=== PATIENT | female | born 1985 | race Caucasian/White ===

== ENCOUNTER 2018-05-10 12:22 | Inpatient (IN) | payer OTHER ==
--- NOTE | 2018-05-10 13:11 | HP ---
General Information - Reason for Visit at 40 w 4 d for induction - General Information Maternal Age: 33 Grav: 4 Para: 3 SAB: 0 IEA: 0 Estimated Due Date: 05/06/18 Determined By: Early Ultrasound Gestational Age in Weeks/Days: 40 w 4d Maternal Blood Type and Rh: O Positive - Results this Serology/RPR Result: Non-Reactive Rubella Result: Immune HBsAg Result: Negative HIV Result: Negative GBS Culture Result: Negative Past Medical History Delivery History: Hx Uncomplicated Vaginal Delivery Past Medical History Comment: asthma eczema migraine Past Surgical History Comment: tonsillectomy 1992 Umbilical hernia repair x2 2007, 2014 laparoscopy with left ovarian cystectomy 2017 Pertinent Family History: Non-Contributory - Antepartal Records Antepartal Records: Reviewed, Complicated by: - marijuana use, cigarette smoker Review of Systems Constitutional: Comfortable CV Complaint: No Respiratory: Shortness of Breath: No Gastrointestinal: No Nausea/Vomiting, Normal Bowel Movement Genitourinary: Spotting Musculoskeletal: Contractions - mild, irregular since approx 2 am Neurological: No Headache Movement: Normal Exam Allergies/Adverse Reactions: Allergies bee venom protein (honey bee) Allergy (Verified 05/04/18 13:23) Difficulty Breathing AND SWELLING tramadol Allergy (Verified 05/04/18 13:23) Hives - Measurements Height: 5 ft 1 in Weight: 189 lb Body Mass Index (BMI): 35.6 Pre- Weight: 156 lb - Exam Breast: - - soft, no masses Extremities: No Edema - eczema present Heart: Normal Rhythm/Heart Sounds HEENT: No Significant Findings Lungs: Clear Bilaterally Reflexes: DTR 2+ Thyroid: No Thyromegaly - Ultrasound/Biophysical Profile Ultrasound Status: Not Done Targeted Exam Findings Cervical Exam: 4cm Effacement: 80% Station: -1 Presenting Part: Vertex Membrane Status: AROM - at 1254 Amniotic Fluid Evaluation: Clear EFM Findings - External Monitor Findings Baseline Heart Rate: 140 External Monitor Findings: Accelerations Present, No Pattern of Variable or Late Decelerations, Variability Moderate, Baseline Stable External Monitor Findings Comment: category 1 Contractions: Irregular, Mild Assessment/Plan - Assessment at 40 w 4 day for elective induction - Obstetrical Risk Factors Obstetrical Risk Factors: Substance Abuse, Tobacco Use - Plan Plan: Admit - Anticipate Vaginal Delivery Plan Comment: will augment with pitocin if amniotomy not effective - Date/Time of Admission Date of Admission: 05/10/18 Time of Admission: 13:00
--- NOTE | 2018-05-10 19:25 | PN ---
Progress Note - Progress Note Date of Service: 05/10/18 Note: contractions every 3-5 minutes, uncomfortable Cervix: 5cm, 100%, vtx -1 Making progress, but will consider pitocin augmentation prn
[2018-05-10] MEDS ORDERED: Oxytocin in LR* 20 UNITS/1,000 ML BAG IVPB SCH (22:00)
[2018-05-10] MEDS ORDERED: Witch Hazel PAD* JAR TOPICAL PRN (22:38)
[2018-05-10] MEDS ORDERED: Acetaminophen TAB* 325 MG PO PRN (22:38)
[2018-05-10] MEDS ORDERED: Glycerin ADULT SUPP PR PRN (22:38)
[2018-05-10] MEDS ORDERED: Dibucaine 1% 28.35 GM TUBE PR PRN (22:38)
[2018-05-10] MEDS ORDERED: OXYTOCIN* 10 UNITS/ML 1 ML VIAL IM ONE (22:39)
--- NOTE | 2018-05-10 22:54 | PROCNOTE ---
[facility] OB: Delivery Note - Delivery A Date of : 05/10/18 Time of : 22:17 Mallard Sex: Male Score 1 Minute: 9 Score 5 Minutes: 9 Gestational Age in Weeks and Days at Delivery: 40 Weeks and 4 Days Delivery Method: Spontaneous Vaginal Labor: Induced - by amniotomy Did Patient attempt ?: N/A, No Previous Amniotic Fluid: Clear Estimated Blood Loss: 150 Anesthesia/Analgesia: None Delivered By: Tram Loya - Nursery Level of Nursery: Regular/Bedside - Perineum Perineal Injury: Perineal Laceration Perineal Injury Comment: 1 stitch repair with 4-0 vicryl under 1% lidocaine local Perineal Repair: By Delivering Practioner - Additional Delivery Notes Additional Delivery Notes: SVB L[facility] over perineal abrasion, hand and arm presented with anterior shoulder, cord around chest and body. Infant pink, vigorous cry. Placenta Zane. Fundus firm with massage, pitocin 10 units IM given. EBL 150 cc. Mother and baby in good condition
[2018-05-10] MEDS: Ibuprofen TAB* 600 MG PO PRN (23:47)
[2018-05-11] MEDS: Ibuprofen TAB* 600 MG PO PRN ×3 (08:06→20:45)
[2018-05-11] MEDS: Docusate CAP* 100 MG PO SCH ×3 (08:07→20:45)
[2018-05-11 08:19] LABS: Hematocrit 39 % (35-47); Hemoglobin 13.2 g/dl (12.0-16.0); Mean Corpuscular HGB Conc 34 g/dl (31-36); Mean Corpuscular Hemoglobin 31 pg (27-31); Mean Corpuscular Volume 92 fL (80-97); Platelet Count 193 10^3/ul (150-450); Red Blood Count 4.26 10^6/ul (4.00-5.40); Red Cell Distribution Width 14 % (10.5-15); White Blood Count 12.4 10^3/ul (3.5-10.8)
[2018-05-11] MEDS ORDERED: Ferrous Gluconate TAB* 324 MG TAB PO SCH (09:00)
[2018-05-12] MEDS: Ibuprofen TAB* 600 MG PO PRN (08:09)
[2018-05-12] MEDS: Docusate CAP* 100 MG PO SCH (08:09)
[2018-05-12 08:30] VITALS: BP 128/80
== END 2018-05-12 08:53 | disposition home or self-care (01) | DRG 560 ==
LOC: MCHOBOUT 12:22 → MCHOB 13:02
PROVIDERS: ADMIT Midwife; ATTEND Midwife
PROC: 10E0XZZ Delivery of Products of Conception, External Approach (ICD-10-PCS; principal; 2018-05-10)
PROC: 3E033VJ Introduction of Other Hormone into Peripheral Vein, Percutaneous Approach (ICD-10-PCS; 2018-05-10)
PROC: 10907ZC Drainage of Amniotic Fluid, Therapeutic from Products of Conception, Via Natural or Artificial Opening (ICD-10-PCS; 2018-05-10)
PROC: 0HQ9XZZ Repair Perineum Skin, External Approach (ICD-10-PCS; 2018-05-10)
DX: O48.0 Post-term pregnancy (principal); Z37.0 Single live birth; O70.0 First degree perineal laceration during delivery; O99.334 Smoking (tobacco) complicating childbirth; F17.210 Nicotine dependence, cigarettes, uncomplicated; O69.89X0 Labor and delivery complicated by other cord complications, not applicable or unspecified; F12.10 Cannabis abuse, uncomplicated; Z3A.40 40 weeks gestation of pregnancy
CPT/HCPCS: 36415; 85027; A9270-GY; J2590

== ENCOUNTER 2019-05-27 12:31 | Emergency (ER) | payer OTHER ==
[2019-05-27 13:10] VITALS: BP 116/81
--- NOTE | 2019-05-27 13:45 | UC ---
Throat Pain/Nasal Antonio HPI - HPI Summary HPI Summary: Pt present with c/o nasal congestion, sinus pressure and pain X 1 week. - History of Current Complaint Chief Complaint: UCRespiratory Stated Complaint: SINUS PRESSURE, CHEST PAIN Time Seen by Provider: 05/27/19 13:40 Hx Obtained From: Patient Hx Last Menstrual Period: 09/05/15 ?: No Onset/Duration: Gradual Onset, Lasting Days, Still Present, Worse Since - onset Severity: Moderate Pain Intensity: 7 Cough: None Associated Signs & Symptoms: Positive: Sinus Discomfort, Nasal Discharge - Epiglottits Risk Factors Epiglottis Risk Factors: Negative - Allergies/Home Medications Allergies/Adverse Reactions: Allergies Allergy/AdvReac Type Severity Reaction Status Date / Time bee venom protein (honey bee) Allergy Difficulty Verified 05/27/19 13:04 Breathing tramadol Allergy Hives Verified 05/27/19 13:04 PMH/Surg Hx/FS Hx/Imm Hx Previously Healthy: Yes - Surgical History Surgical History: Yes Surgery Procedure, Year, and Place: Umbilical Herniorrhaphies, 2007 2014, [facility] [place] - Family History Known Family History: Positive: Cardiac Disease - Social History Occupation: Employed Full-time Lives: With Family Alcohol Use: Rare Substance Use Type: None Smoking Status (MU): Light Every Day Tobacco Smoker Type: Cigarettes Amount Used/How Often: 1/2 ppd Length of Time of Smoking/Using Tobacco: 13 Years Have You Smoked in the Last Year: Yes When Did the Patient Quit Smoking/Using Tobacco: 1/2 PACK/DAY Household Exposure Type: Cigarettes - Immunization History Most Recent Influenza Vaccination: declined Most Recent Tetanus Shot: 03/2013 Most Recent Pneumonia Vaccination: Unknown Review of Systems All Other Systems Reviewed And Are Negative: Yes Constitutional: Positive: Fatigue Skin: Positive: Negative Eyes: Positive: Negative ENT: Positive: Ear Ache, Sinus Congestion, Sinus Pain/Tenderness Respiratory: Positive: Cough Cardiovascular: Positive: Negative Gastrointestinal: Positive: Negative Genitourinary: Positive: Negative Motor: Positive: Negative Neurovascular: Positive: Negative Musculoskeletal: Positive: Negative Neurological: Positive: Headache Psychological: Positive: Negative Is Patient Immunocompromised?: No Physical Exam Triage Information Reviewed: Yes Appearance: Ill-Appearing Vital Signs: Initial Vital Signs Temp 97.5 F 05/27/19 13:05 Pulse 63 05/27/19 13:05 Resp 15 05/27/19 13:05 BP 116/81 05/27/19 13:05 Pulse Ox 99 05/27/19 13:05 Vital Signs Reviewed: Yes Eye Exam: Normal ENT: Positive: Nasal congestion, TM bulging, Sinus tenderness Dental Exam: Normal Neck exam: Normal Respiratory Exam: Normal Cardiovascular Exam: Normal Musculoskeletal Exam: Normal Neurological Exam: Normal Psychological Exam: Normal Skin Exam: Normal Throat Pain/Nasal Course/Dx - Differential Dx/Diagnosis Differential Diagnosis/HQI/PQRI: Influenza, Sinusitis, URI Provider Diagnosis: Sinusitis Discharge ED - Sign-Out/Discharge Documenting (check all that apply): Patient Departure All imaging exams completed and their final reports reviewed: No Studies - Discharge Plan Condition: Stable Disposition: HOME Prescriptions: Amoxicillin PO (*) [Amoxicillin 875 MG (*)] 875 mg PO Q12H #20 tab Guaifenesin/Pseudoephedrne HCl [Mucinex D ER 600-60 mg Tablet] 1 each PO Q12H # 14 tab.er.12h Patient Education Materials: Sinusitis (ED) Referrals: Le Palomares MD [Primary Care Provider] - If Needed - Billing Disposition and Condition Condition: STABLE Disposition: Home
== END 2019-05-27 13:54 | disposition home or self-care (01) ==
LOC: UCCORT 12:31
DX: J32.9 Chronic sinusitis, unspecified (principal); H92.09 Otalgia, unspecified ear; F17.210 Nicotine dependence, cigarettes, uncomplicated; Z91.040 Latex allergy status; Z88.5 Allergy status to narcotic agent
CPT/HCPCS: 99212; G0463